=== PATIENT | male | born 1950 | race Caucasian/White ===

== ENCOUNTER 2020-11-25 09:43 | Outpatient (RCR) | payer OTHER, BC ==
[~2020-11-25 09:43] MED LIST: BENICAR HCT 12.1 TA1 PO; COUMADIN 6MG6 MG/TAB PO; DILAUDID 4MG TAB4 MG PO; FLEXERIL 1010 MG/TAB PO; LORTAB 5/500 501 TAB PO; MEDROL4 MG; MICARDIS HCT 121 TA1 PO; MOTRIN 200200 MG/TAB; NO HOME MEDICATIONS; PERCOCET 325 MG1 TA2; ZOFRAN 4MG T4 MG/TAB PO
== END 2020-11-25 13:23 | disposition home or self-care (01) ==
LOC: WSPT 09:43
DX: M54.16 Radiculopathy, lumbar region (principal)

== ENCOUNTER 2021-12-31 11:15 | Outpatient (RCR) | payer OTHER | END 2022-01-12 | disposition home or self-care (01) | LOC: WSPT | DX: M54.16 Radiculopathy, lumbar region (principal) ==

== ENCOUNTER → 2022-04-08 | Outpatient (CLI) | payer OTHER | LOC: COL.RAD 15:05 | DX: N18.9 Chronic kidney disease, unspecified (principal) ==

== ENCOUNTER → 2023-11-17 | Outpatient (CLI) | payer MEDICARE ==
[~2023-11-17] MED LIST changes: +Iohexol 300 - 10 ML VIAL IV ONE; +Triamcinolone 40 MG/ML 1 ML VIAL IJ ONE
== END ==
LOC: COL.RAD 12:51
DX: M25.551 Pain in right hip (principal)
CPT/HCPCS: J0665; J3301; Q9967